=== PATIENT | female | born 1990 ===

== ENCOUNTER 2016-08-15 15:57 | Emergency (ER) | payer SELFPAY ==
[2016-08-15 17:38] VITALS: BMI 32.8
[2016-08-15 18:31] LABS: RBC URINE 7 /hpf (0-3); URINE BACTERIA OCC (<OCC); URINE BILIRUBIN NEGATIVE (NEGATIVE); URINE BLOOD NEGATIVE (NEGATIVE); URINE COLOR YELLOW (YELLOW); URINE GLUCOSE (UA) NEG (Normal); URINE KETONE NEGATIVE (NEGATIVE); URINE LEUKOCYTE ESTERASE LARGE Leu/uL (Negative); URINE PROTEIN NEGATIVE (NEGATIVE); URINE UROBILINOGEN 0.2-1.0 mg/dL (0.2-1.0); WBC URINE 4 /hpf (0-5)
[2016-08-15 18:42] VITALS: TEMP 98.8
--- NOTE | 2016-08-16 08:37 | OBHP ---
Datetime: 08/15/2016 17:30 IP Adm Impression: , intrauterine ; No Active Labor; Intact Membranes IP Chief Complaint Other: lower pelvic pain IP Admit Plan: Observation/Evaluation; Discharge home Admit Comment, IP Provider: 26 yr at 26.5 wks GA presents to [facility] with complaint of lower pe lvic pain and increased vaginal discharge. Denies vaginal bleeding, LOF, ctx's, dysuria or hematuria. + movements. Lower pelvic pain more so in bilateral inguinal fold area, began last night and p ersisted, can't describe it, is 8/10. Also has a mild headache, denies visual changes/RUQ pain/SOB/ex t swelling. Late care at [place] with Dr. Green. Denies any complications with this pr egnancy, UTI s/p Ampicillin tx in Apr 2016. 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 Patient has no other concerns or complaints at this time. Next sched [facility] clinic visit is 08/20/16. care/course: late PNC, UTI tx Ampicillin Apr 2016, Anatomy US 07/18/16 showed laggin g BPD and HC; Rh neg, Rubella Immune, RPR neg, GBS neg, HepBsAg neg, PPD neg, Gc/Ch neg/neg, SRI posi tive titer 1:160 OBHx: 2 FT , primary for failure to progress, 1 miscarriage, 1 SAB PMHx: none SurgHx: x 2 SocHx: denies Etoh/smoking, drugs Meds: PNV Allergies: NKDA, seasonal allergies PE: VSS, patient in no acute distress HEENT: nasal congestion, intermittent non-productive cough Cardiac: S1 S2 normal, no murmurs/rubs/gallops Lungs: CTABL Abd: gravid, non-tender Ext: no edema, DTR's 2+ throughout SSE: copious amount of white vaginal discharge, cervix closed Monitoring: FHR 148 bpm, moderate variability 6-25bpm, accelerations 10x10, no decels Category I A: 26 yr old at 26.5wks GA with vaginal candidiasis and mild headache P: -observe - monitoring -send urinalysis -Tylenol 650mg PO once -Rx for Miconazole 7 -if urinalysis within normal limits, discharge home, follow up with Dr. Green as scheduled fri08/20/16. Shefali Jimenez M.D. PGY1 Pelvic Type - PN: Adequate Extremities - PN: Normal Abdomen - PN: Normal Back - PN: Normal Lungs - PN: Normal Heart - PN: Normal Thyroid - PN: Normal Neurologic - PN: Normal HEENT - PN: Normal General - PN: Normal FHR - Baseline A Provider: 148 Comments, ACOG Physical Exam: SSE: copious amount of white vaginal discharge, cervix closed Gestation - Est Wks by US: 26.5 EGA AdmitDate IP: 26.5 Vital Signs Provider: Reviewed; Within Normal Limits IP Chief Complaint: Maternal discomfort NICHD Variability Prov Fetus A: Moderate 6-25bpm NICHD Accel Fetus A IP Provider: 10X10 FHR Category Provider Fetus A: Category I NICHD Decel Fetus A IP Provider: None Dilatation, Provider: 0 Genitourinary Exam: Abnormal DTRs - PN: Normal
== END 2016-08-15 19:18 | disposition home or self-care (01) ==
LOC: H.EROB2 15:57
DX: O26.92 Pregnancy related conditions, unspecified, second trimester (principal); B37.3 Candidiasis of vulva and vagina; O47.02 False labor before 37 completed weeks of gestation, second trimester; Z3A.26 26 weeks gestation of pregnancy

== ENCOUNTER 2016-10-10 10:48 | Inpatient (IN) | payer SELFPAY ==
[2016-10-10 11:43] VITALS: BMI 41.0
[2016-10-10] MEDS ORDERED: Magnesium Sul 40GM/1L SW 40 GM/1,000 ML ML IV ONE ×2 (11:43→19:16)
[2016-10-10] MEDS: Magnesium Sulfate 4 gm/100 ml 4 GM/100 ML BAG IV ONE ×2 (11:45→12:11)
[2016-10-10] MEDS ORDERED: Lactated Ringer's 1,000 ML IV SCH (11:46)
[2016-10-10] MEDS ORDERED: Betamethasone Soluspan 30 mg/5mL Inj Susp IM ONE (11:50)
[2016-10-10 12:13] LABS: HEMATOCRIT 34.4 % (34.0-47.0); MEAN CELL VOLUME 79.5 fl (81.0-99.0); MEAN CORPUSCULAR HEMOGLOBIN 25.8 pg (27.0-31.0); MEAN CORPUSCULAR HGB CONC 32.4 g/dL (33.0-37.0); RED CELL DISTRIBUTION WIDTH 16.8 % (11.5-14.5)
[2016-10-10 12:33] LABS: ALB/GLOB RATIO 0.9 (1.0-2.1); ALKALINE PHOSPHATASE 122 U/L (38-126); ALT/SGPT 19 U/L (9-52); AST/SGOT 58 U/L (14-36); BILIRUBIN,TOTAL 0.9 mg/dl (0.2-1.3); BLOOD UREA NITROGEN 15 mg/dl (7-17); CALCIUM 8.6 mg/dL (8.4-10.2); CARBON DIOXIDE 20 mmol/L (22-30); CHLORIDE 108 mmol/L (98-107); GFR AFRICAN-AMERICAN > 60; GLUCOSE,RANDOM 65 mg/dL (65-105); SODIUM 134 mmol/l (132-148); TOTAL PROTEIN 6.8 G/DL (6.3-8.2)
[2016-10-10 12:35] LABS: POTASSIUM 5.5 MMOL/L (3.6-5.0)
[2016-10-10] MEDS ORDERED: Labetalol 5 mg/ml Inj 20ML IVP STA (12:47)
[2016-10-10 12:55] LABS: RBC URINE 7 /hpf (0-3); URINE BACTERIA RARE (<OCC); URINE BILIRUBIN NEGATIVE (NEGATIVE); URINE BLOOD NEGATIVE (NEGATIVE); URINE COLOR AMBER (YELLOW); URINE GLUCOSE (UA) NEG (Normal); URINE KETONE NEGATIVE (NEGATIVE); URINE LEUKOCYTE ESTERASE SMALL Leu/uL (Negative); URINE PROTEIN >=500 mg/dL (NEGATIVE); URINE UROBILINOGEN 0.2-1.0 mg/dL (0.2-1.0); WBC URINE 8 /hpf (0-5)
[2016-10-10 13:07] LABS: PARTIAL THROMBOPLASTIN TIME 27.5 Seconds (25.6-37.1)
[2016-10-10] MEDS ORDERED: Oxytocin 30 units/LR 500ML 30 U/500 ML BAG IV ONE (13:18)
[2016-10-10 14:00] VITALS: RESP 18; TEMP 98.5; O2SAT 99
[2016-10-10] MEDS: Lactated Ringer's 2,000 ML IV SCH ×2 (14:00→15:00)
[2016-10-10] MEDS ORDERED: Morphine 1 mg/ml preservative-free Inj(Duramorph) ONE (15:11)
[2016-10-10] MEDS ORDERED: Phenylephrine 10 mg/ml Inj ONE (15:12)
[2016-10-10] MEDS ORDERED: ePHEDrine 50 mg/ml Inj ONE (15:15)
[2016-10-10] MEDS ORDERED: DiphenhydrAMINE 50 mg/ml Inj IVP PRN (16:10)
[2016-10-10] MEDS ORDERED: Naloxone 0.4 mg/ml Inj (Adult) IVP PRN (16:10)
[2016-10-10] MEDS ORDERED: Propofol 10 mg/ml Inj (20 ML) ONE (16:52)
[2016-10-10] MEDS ORDERED: Oxycodone/Acetaminophen 5/325 mg Tab PO PRN ×2 (18:16)
[2016-10-10] MEDS: Lactated Ringer's 1,000 ML IV SCH (18:30)
[2016-10-10] MEDS ORDERED: Magnesium Sulfate 2 GM in Sodium Chloride 0.9% 100 ML IVPB ONE (18:50)
--- NOTE | 2016-10-10 18:54 | OBDS ---
DELIVERY PERSONNEL Nurse Software Support Engineer Certified: na Delivery Doctor: Maia Thomson MD Scrub Nurse: Genet Mendoza OBT Manager Customs: Tereza Oliver RN/Jose E Ramos Anesthesiologist: / Food Tray Assembler: na MATERNAL INFORMATION Delivery Anesthesia: Spinal Maternal Complications: Other Other Maternal Complications: Pre eclamptia--BP-166/100 with cramping on and off Provider Comments: ap dx: 34.5wks; preeclampsia with proteinura; prior cd; desired sterilization pp dx: same procedure: repeat LFTCD; ligation of left fallopian tube surgeon: tam 1st asst: nasrin 2nd asst: lenore pgy2 [id number] findings: adhesions of right fallopian tube to right ovary; subcutaneous adhesions to fascia; adhe sions of muscle to rectus fascia no complications findings: female; 2460g; 9_9 to nbn pt to rr LABOR SUMMARY EDC: 11/16/2016 00:00 No. Babies in Womb: 1 Attempted: No Labor Anesthesia: None LABOR INFORMATION Reason for Induction: Not Applicable Cervical Ripening Agents: Other (Annotations: Labetalol 20 mg IVP) Oxytocin: N/A Group B Beta Strep: Not Done Antibiotics # of Doses: Ancef 3 gms. IVPB at Antibiotics Time of Last Dose: 1510 Steroids Given: Partial Course Other Reason Not Administered: na MEMBRANES Membranes Rupture Method: Artificial STAGES OF LABOR Stage 3 hrs: 1 Stage 3 min: 1 BABY A INFORMATION Infant Delivery Date/Time: 10/10/2016 16:24 Method of Delivery: Born in Route : No : N/A Forceps: N/A Vacuum Extraction: N/A Shoulder Dystocia : No SHOULDER DYSTOCIA BABY A Delivery Date/Time: 10/10/2016 16:24 PRESENTATION/POSITION BABY A Presentation: Cephalic Breech Presentation: N/A PLACENTA INFORMATION BABY A Placenta Delivery Time : 10/10/2016 17:25 Placenta Method of Delivery: Manual Removal Placenta Status: Delivered SCORES BABY A Heart Rate 1 min: >100 bpm Resp Effort 1 min: Good Cry Reflex Irritability 1 min: Cough or Sneeze or Pulls Away Muscle Tone 1 min: Active Motion Color 1 min: Body [place], Extremities Blue Resuscitation Effort 1 min: Tactile Stimulation SCORE 1 MIN: 9 Heart Rate 5 min: >100 bpm Resp Effort 5 min: Good Cry Reflex Irritability 5 min: Cough or Sneeze or Pulls Away Muscle Tone 5 min: Active Motion Color 5 min: Body [place], Extremities Blue Resuscitation Effort 5 min: Tactile Stimulation SCORE 5 MIN: 9 INFORMATION BABY A Gestational Age at Delivery: 34.5 Gestational Status: Outcome : Liveborn Infant Condition : Stable Infant Sex: Female IDENTIFICATION/MEDS BABY A ID Band Number: [id number] ID Band Location: Left Leg; Left Arm Vitamin K Given : Not Given Erythromycin Given: Not Given WEIGHT/LENGTH BABY A Infant Birthweight (gms): 2460 Weight (lb): 5 Weight (oz): 7 CORD INFORMATION BABY A No. Cord Vessels: 3 Nuchal Cord : N/A Nuchal Cord Other: na True Knot: na Cord pH Baby Arterial: na Infant Cord pH Baby Venous: na Cord Blood Taken: Yes Banking/Donate Info: na ASSESSMENT BABY A Infant Complications: None Physical Findings at Delivery: Within Normal Limits Infant Respirations: Appears Normal Rental Management Trainee/ALS Called : Yes Care By: /Jose E Sarkar Transferred To: Nursery
[2016-10-10] MEDS ORDERED: Magnesium Sulfate 4 gm/100 ml 4 GM/100 ML BAG IVPB ONE (18:58)
[2016-10-11 07:16] LABS: HEMATOCRIT 28.9 % (34.0-47.0); MEAN CELL VOLUME 80.9 fl (81.0-99.0); MEAN CORPUSCULAR HEMOGLOBIN 25.4 pg (27.0-31.0); MEAN CORPUSCULAR HGB CONC 31.4 g/dL (33.0-37.0); RED CELL DISTRIBUTION WIDTH 17.3 % (11.5-14.5); WHITE BLOOD COUNT 18.9 K/uL (4.8-10.8)
[2016-10-11] MEDS: Lactated Ringer's 1,000 ML IV SCH (07:30)
[2016-10-11] MEDS ORDERED: Magnesium Sul 40GM/1L SW 40 GM/1,000 ML ML IV ONE (08:27)
[2016-10-11] MEDS: Simethicone 80 mg Chewtab PO SCH ×2 (14:30→19:54)
[2016-10-12] MEDS: Simethicone 80 mg Chewtab PO SCH ×3 (04:10→22:37)
--- NOTE | 2016-10-12 06:25 | OBPPN ---
Datetime: 10/11/2016 07:08 PP Pain Prov: Within normal limits PP Nausea Prov: Denies PP Flatus Prov: Yes PP Breasts Prov: Normal PP Heart Prov: Normal PP Lungs Prov: Normal PP Abdomen/Uterus Prov: Normal PP Lochia Prov: Normal PP Vulva/Perineum Prov: Normal PP CVA Tenderness Prov: Normal PP Extremities Prov: Normal PP Progress Note Prov: 26 y/o now seen and examined at bedside. Patient had uneventful overnig ht. Patient reports mild pelvic pain controlled w/ pain meds. Laying in bed w/o dizziness. Breast/ bottle feeding w/o difficulty. Tolerating PO diet well. Lochia is less than menses in volume. Void ing via bain w/ no blood noted. Reports no bowel movement. Denies fevers, chills, n/v/d, CP/SOB, l ightheadedness and calf pain. Patient continuing to receive MgSO4. PE: GEN: A_O, resting comfortably in bed, NAD Lung: CTA B/L, no wheezing, rhonchi, or rales CVS: S1, S2 wnl, RRR Abd: +BS, firm fundus below umbilicus. Incision dressed, dry, clean, and intact. EXT: no edema, negative Brenda's, calves non-tender Assessment: 26 y/o now s/p on 10/10/2016 @ 16:24 pm tolerating pain w/ medication, tolerating oral intake, adequate urine output via bain, doing well on POD1. Plan: Percocet 5/325 mg 1-2 tabs PO Q6h prn for mod/severe pain. Ibuprofen 600 mg 1 tab Q6h PO pr n for mild pain. Encourage breast feeding and ambulation. Karthik Villanueva M.D. Vice President Education PGY-1 OB Hospitalist note. On rounds at 22:00pm, I saw and examined this pt. Agree with PGY1 note MAHKAYLYN O Also, I had seen pt lele nguyen the day...trasnfered pt form L_D to after MgSO4 disucont inued
--- NOTE | 2016-10-12 13:25 | OBPPN ---
Datetime: 10/12/2016 06:43 PP Pain Prov: Within normal limits PP Nausea Prov: Denies PP Flatus Prov: Yes PP BM Prov: Yes PP Breasts Prov: Normal PP Heart Prov: Normal PP Lungs Prov: Normal PP Abdomen/Uterus Prov: Normal PP Lochia Prov: Normal PP Vulva/Perineum Prov: Normal PP CVA Tenderness Prov: Normal PP Extremities Prov: Normal PP C/S Incision Prov: Normal PP Progress Prov: Normal PP Comments Phys Exam Prov: abd: +BS, soft, NT/ND, no guarding/rigidity. Fundus firm at level of umb ilicus Incision: clean, dry, intact PP Impression Prov: Normal progression PP Plan Prov: Continue present management PP Progress Note Prov: pt seen and examined at bedside. No acute events overnight. Patient reports mild pelvic pain controlled w/ pain meds. OOB/ambulating w/o dizziness. Breast/bottle feeding w/o di fficulty. Tolerating PO diet well. Lochia is less than menses in volume. +flatus/+bm. Denies fevers , chills, headaches, visual disturbances, epigastric pain, n/v/d, CP/SOB, lightheadedness and calf pa in, numbness/tingling. A/P: 26 y/o now s/p on 10/10/2016 @ 16:24 pm tolerating pain w/ medication doing we ll on POD#2. -continue current mangement -monitor BPs -Percocet 5/325 mg 1tab PO Q6h prn for mod/severe pain. -Ibuprofen 600 mg 1 tab Q6h PO prn for mild pain. -Encourage breast feeding and ambulation. -anticipate DC 10/13 Antonio Reese MD PGY1 @ 6:48am OB Hospitalist note. On rounds this morning, I saw and examined this pt. Agree with PGY1 note MARTHA NDO Vital Signs Provider PP: Reviewed Vital Signs Provider Details PP: episodic elevated blood pressure, regular rate, afebrile
--- NOTE | 2016-10-12 17:03 | CP.PCM.CON ---
History of Present Illness - History of Present Illness History of Present Illness: 26 yo female 2 day post referred for management of pre-eclampsia and HTN. Pt presently only complained of soreness on surgical site during BM. Denied dysuria. Denied dizziness, headache or nausea. Review of Systems - Review of Systems All systems: reviewed and no additional remarkable complaints except (aside from those mentioned above, 12 point system review were negative by me) Past Patient History - Past Social History Smoking Status: Never Smoked Alcohol: None - PSYCHIATRIC Hx Substance Use: No - SURGICAL HISTORY Hx Surgeries: Yes Hx Section: Yes (x2) - ANESTHESIA Hx Anesthesia: Yes Hx Anesthesia Reactions: No Meds Allergies/Adverse Reactions: Allergies Allergy/AdvReac Type Severity Reaction Status Date / Time [place] [employer] Allergy RASH Verified 07/04/15 20:50 - Medications Medications: Current Medications Acetaminophen (Tylenol 325mg Tab) 650 mg PO Q4H PRN PRN Reason: Pain, Mild (1-3) Sodium Chloride (Sodium Chloride 0.9%) 1,000 mls @ 100 mls/hr IV .Q10H EDWARD Stop: 10/13/16 16:45 Ibuprofen (Motrin Tab) 600 mg PO Q4H PRN PRN Reason: Pain, Mild (1-3) Last Admin: 10/12/16 11:48 Dose: 600 mg Oxycodone/Acetaminophen (Percocet 5/325 Mg Tab) 1 tab PO Q4 PRN PRN Reason: Pain, moderate (4-7) Stop: 10/13/16 18:17 Oxycodone/Acetaminophen (Percocet 5/325 Mg Tab) 2 tab PO Q4 PRN PRN Reason: Pain, severe (8-10) Stop: 10/13/16 18:17 Sennosides (Senokot Tab) 17.2 mg PO HS [facility] Last Admin: 10/12/16 04:10 Dose: Not Given Simethicone (Mylicon Chew Tab) 80 mg PO Q6 EDWARD Last Admin: 10/12/16 13:41 Dose: Not Given Physical Exam - Constitutional Appears: No Acute Distress - Head Exam Head Exam: ATRAUMATIC - Eye Exam Eye Exam: absent: Scleral icterus - ENT Exam ENT Exam: Mucous Membranes Moist - Neck Exam Neck exam: Negative for: Meningismus - Respiratory Exam Respiratory Exam: Clear to Auscultation Bilateral. absent: Rhonchi, Wheezes, Respiratory Distress - Cardiovascular Exam Cardiovascular Exam: REGULAR RHYTHM, +S1, +S2 - GI/Abdominal Exam GI & Abdominal Exam: Soft, Tenderness (mild tenderness on surgical site) - Rectal Exam Rectal Exam: Deferred - Extremities Exam Extremities exam: Positive for: pedal edema - Back Exam Back exam: absent: tenderness - Neurological Exam Neurological exam: Alert, Oriented x3 - Psychiatric Exam Psychiatric exam: Normal Affect - Skin Skin Exam: Dry, Intact Results - Vital Signs Recent Vital Signs: Last Vital Signs Temp 98.5 F 10/10/16 12:00 Pulse 76 10/10/16 13:07 Resp 18 10/10/16 12:00 BP 166/100 H 10/10/16 13:07 Pulse Ox 99 10/10/16 12:00 - Labs Result Diagrams: 10/11/16 06:59 10/10/16 11:45 Assessment & Plan (1) Pre-eclampsia in period Status: Acute Comment: BP had been relatively stable and controlled without anti- hypertensive. SBP and DBP have been consistently < 150 and < 100 respectively the whole day today. continue to monitor BP. CBC, CMP and Mg level stat and in am. continue IV hydration with NSS until Mg drops to normal level. urine and blood culture
[2016-10-12] MEDS: Sodium Chloride 0.9% 1,000 ML IV SCH (17:33)
[2016-10-12 17:36] LABS: BASO # 0.1 K/uL (0.0-0.2); BASO % 0.5 % (0.0-2.0); EOS # 0.2 K/uL (0.0-0.7); EOS % 1.7 % (0.0-4.0); HEMATOCRIT 24.1 % (34.0-47.0); LYMPH # 2.6 K/uL (1.0-4.3); MEAN CELL VOLUME 80.6 fl (81.0-99.0); MEAN CORPUSCULAR HEMOGLOBIN 25.6 pg (27.0-31.0); MEAN CORPUSCULAR HGB CONC 31.7 g/dL (33.0-37.0); MEAN PLATELET VOLUME 8.7 fl (7.2-11.7); MONO % 8.3 % (0.0-10.0); NEUT # 8.5 K/uL (1.8-7.0); NEUT % 68.5 % (50.0-75.0); RED CELL DISTRIBUTION WIDTH 17.3 % (11.5-14.5); WHITE BLOOD COUNT 12.4 K/uL (4.8-10.8)
[2016-10-12 17:51] LABS: ALB/GLOB RATIO 0.9 (1.0-2.1); ALKALINE PHOSPHATASE 93 U/L (38-126); ALT/SGPT 34 U/L (9-52); AST/SGOT 38 U/L (14-36); BILIRUBIN,TOTAL < 0.1 mg/dl (0.2-1.3); BLOOD UREA NITROGEN 19 mg/dl (7-17); CALCIUM 7.3 mg/dL (8.4-10.2); CARBON DIOXIDE 27 mmol/L (22-30); CHLORIDE 105 mmol/L (98-107); GFR AFRICAN-AMERICAN > 60; GLUCOSE,RANDOM 79 mg/dL (65-105); MAGNESIUM 2.4 MG/DL (1.6-2.3); POTASSIUM 4.4 MMOL/L (3.6-5.0); SODIUM 137 mmol/l (132-148); TOTAL PROTEIN 5.2 G/DL (6.3-8.2)
--- NOTE | 2016-10-12 18:32 | RAD ---
PROCEDURE: CHEST RADIOGRAPH, 1 VIEW HISTORY: leukocytosis COMPARISON: None available. FINDINGS: LUNGS: Poor inspiration with low lung volumes, crowded bronchovascular markings and mild bibasilar atelectasis. PLEURA: No pneumothorax or pleural fluid seen. CARDIOVASCULAR: Heart appears mildly enlarged. OSSEOUS STRUCTURES: No significant abnormalities. VISUALIZED UPPER ABDOMEN: Normal. OTHER FINDINGS: None. IMPRESSION: Poor inspiration with low lung volumes, crowded bronchovascular markings and suspected mild bibasilar atelectasis. Mild cardiomegaly.
[2016-10-13] MEDS: Simethicone 80 mg Chewtab PO SCH ×4 (04:13→09:39)
[2016-10-13] MEDS: Sodium Chloride 0.9% 1,000 ML IV SCH (05:06)
[2016-10-13 06:11] LABS: BASO # 0.1 K/uL (0.0-0.2); EOS # 0.3 K/uL (0.0-0.7); EOS % 2.4 % (0.0-4.0); HEMATOCRIT 25.6 % (34.0-47.0); LYMPH # 2.8 K/uL (1.0-4.3); LYMPH % 22.8 % (20.0-40.0); MEAN CELL VOLUME 80.8 fl (81.0-99.0); MEAN CORPUSCULAR HEMOGLOBIN 25.8 pg (27.0-31.0); MEAN CORPUSCULAR HGB CONC 31.9 g/dL (33.0-37.0); MONO % 7.9 % (0.0-10.0); NEUT % 65.9 % (50.0-75.0); NRBC % 0.1 % (0.0-0.0); RED CELL DISTRIBUTION WIDTH 17.3 % (11.5-14.5); WHITE BLOOD COUNT 12.1 K/uL (4.8-10.8)
[2016-10-13 06:22] LABS: BLOOD UREA NITROGEN 12 mg/dl (7-17); CALCIUM 7.7 mg/dL (8.4-10.2); CARBON DIOXIDE 26 mmol/L (22-30); CHLORIDE 108 mmol/L (98-107); GFR AFRICAN-AMERICAN > 60; GLUCOSE,RANDOM 68 mg/dL (65-105); MAGNESIUM 2.1 MG/DL (1.6-2.3); POTASSIUM 4.1 MMOL/L (3.6-5.0); SODIUM 138 mmol/l (132-148)
[2016-10-13 08:21] VITALS: PULSE 77
--- NOTE | 2016-10-13 09:18 | CP.PCM.PN ---
Subjective - Date & Time of Evaluation Date of Evaluation: 10/13/16 Time of Evaluation: 09:16 - Subjective Subjective: Pt seen examined bedside. Patient feeling well, no chest pain or dyspnea, no palpitations. Has been receiving fluids until this morning. Will diurese patient, complains of edema. Mildly hypertensive, start labetalol 100 mg Q12 otherwise stable no acute distress. Objective - Vital Signs/Intake and Output Vital Signs (last 24 hours): Temp Pulse Resp BP Pulse Ox 98.5 F 77 18 158/96 H 99 10/10/16 12:00 10/13/16 08:19 10/10/16 12:00 10/13/16 08:19 10/10/16 12:00 - Medications Medications: Current Medications Acetaminophen (Tylenol 325mg Tab) 650 mg PO Q4H PRN PRN Reason: Pain, Mild (1-3) Furosemide (Lasix) 20 mg IVP STAT STA Stop: 10/13/16 09:16 Ibuprofen (Motrin Tab) 600 mg PO Q4H PRN PRN Reason: Pain, Mild (1-3) Last Admin: 10/12/16 11:48 Dose: 600 mg Labetalol HCl (Trandate) 100 mg PO BID EDWARD Last Admin: 10/13/16 08:19 Dose: 100 mg Oxycodone/Acetaminophen (Percocet 5/325 Mg Tab) 1 tab PO Q4 PRN PRN Reason: Pain, moderate (4-7) Stop: 10/13/16 18:17 Oxycodone/Acetaminophen (Percocet 5/325 Mg Tab) 2 tab PO Q4 PRN PRN Reason: Pain, severe (8-10) Stop: 10/13/16 18:17 Sennosides (Senokot Tab) 17.2 mg PO HS EDWARD Last Admin: 10/12/16 22:37 Dose: Not Given Simethicone (Mylicon Chew Tab) 80 mg PO Q6 EDWARD Last Admin: 10/13/16 08:21 Dose: 80 mg - Labs Labs: 10/13/16 05:50 10/13/16 05:50 PT 9.7 Seconds (9.8-13.1) L 10/10/16 12:33 INR 0.9 (0.9-1.2) 10/10/16 12:33 APTT 27.5 Seconds (25.6-37.1) 10/10/16 12:33 - Constitutional Appears: Non-toxic, No Acute Distress - Head Exam Head Exam: ATRAUMATIC, NORMOCEPHALIC - Eye Exam Eye Exam: EOMI, Normal appearance, PERRL - ENT Exam ENT Exam: Mucous Membranes Moist, Normal Oropharynx - Neck Exam Neck Exam: Full ROM, Normal Inspection - Respiratory Exam Respiratory Exam: Clear to Ausculation Bilateral, NORMAL BREATHING PATTERN - Cardiovascular Exam Cardiovascular Exam: RRR, +S1, +S2 - GI/Abdominal Exam GI & Abdominal Exam: Soft, Normal Bowel Sounds. absent: Tenderness, Mass, Organomegaly - Extremities Exam Extremities Exam: Normal Capillary Refill, Pedal Edema - Back Exam Back Exam: absent: CVA tenderness (L), CVA tenderness (R) - Neurological Exam Neurological Exam: Alert, Awake, Oriented x3 - Psychiatric Exam Psychiatric exam: Normal Affect, Normal Mood - Skin Skin Exam: Dry, Normal Color, Warm Assessment and Plan - Assessment and Plan (Free Text) Plan: Preeclampsia in patient +Proteinuria, hypertension - started Labetalol 100 mg Q12 today for BP 171/97, 153/102, 166/100, 158/96 since yesterday - fluids were d/c this AM for hypermagnesemia - lasix 20mg IV once - recommend to pump and dump breastmilk - monitor BP today - consider DC today once BP under control per OBGYN
[2016-10-13 10:28] VITALS: BP 161/92
--- NOTE | 2016-10-13 19:01 | OBPPN ---
Datetime: 10/13/2016 12:01 PP Pain Prov: Within normal limits PP Nausea Prov: Denies PP Flatus Prov: Yes PP BM Prov: Yes PP Breasts Prov: Normal PP Heart Prov: Normal PP Lungs Prov: Normal PP Abdomen/Uterus Prov: Normal PP Lochia Prov: Normal PP Extremities Prov: Normal PP C/S Incision Prov: Normal PP Progress Prov: Normal PP Comments Phys Exam Prov: Abd: Fundus Firm and below umbilicus. No right upper quadrant tenderenes s Incision site: Appears C/D/I Ext: Non pitting edema of the lower extremities. No calf tendereness b/l PP Impression Prov: Normal progression; Induced Hypertension PP Plan Prov: Continue present management; Discharge PP Progress Note Prov: Patient is seen and examined at bedside. No acute events overnight. Patient reports mild pelvic pain controlled w/ pain meds. OOB/ambulating w/o dizziness. Breast/bottle feedin g w/o difficulty. Tolerating PO diet well. Lochia is less than menses in volume. +flatus/+bm. Denie s fevers, chills, headaches, visual disturbances, epigastric pain, chest pain n/v/d, CP/SOB, lighthea dedness and calf pain, numbness/tingling. A/P: 26 y/o now s/p on 10/10/2016 @ 16:24 pm tolerating pain w/ medication doing we ll on POD#3. -continue current mangement -monitor BPs -Percocet 5/325 mg 1tab PO Q6h prn for mod/severe pain. -Ibuprofen 600 mg 1 tab Q6h PO prn for mild pain. -Encourage breast feeding and ambulation. - Lasix 20 mg IV once, Labetalol 100 mg BID -anticipate DC is today if cleared by hospitalist and BP is stable Jes Field M.D. IP PP Procedures: None Vital Signs Provider PP: Reviewed Vital Signs Provider Details PP: Hypertensive: BP: 161/92 HR: WNL
--- NOTE | 2016-10-13 19:01 | OBDCSUM ---
Datetime: 10/13/2016 12:10 Discharged to, Provider: Home Follow up at, Provider: OBGYN Disch Instr Activity: Normal activity Disch Instr Diet: Regular Discharge Instructions, Provider: Routine instructions given Discharge Diagnosis, Provider: Term Delivered Discharge Time: 10/13/2016 15:00 Follow up in weeks, Provider: 2-3 days BP check Disch Referrals: None Disch Activity Restrictions: No sexual activity; Nothing in vagina - [place], tampons, douche Discharge Comment, Provider: 26 YO had a C Section Delivered baby boy on 10/10/16 @ 16:24 2460gm , : 9,9, Patient doing well, stable for discharge. Prescription given for pain. Encourage - PNV 1 tab PO once daily - Ibuprofen 600 mg 1 tab PO Q6 PRN pain - Percocet 5/325 mg PO Q 6 1 tab for moderate to severe pain - Labetolol 100 mg BID - Ferrous Sulfate 325 mg BID - Monitor BP: Script given to patient Ambulate w/ caution, nothing in vagina, no heavy lifting, if excessive bleeding or fever without relief from Tylenol go to ED - Advised to F/U with PMD in 2-3 days for blood pressure check and 1 week for wound check. Take b iliana to peds in 2-3 days Jes Field M.D. [employer] Pre Cooker PGY1 Discharge Diagnosis Prov Other: HTN Contraception after Delivery: Undecided
== END 2016-10-13 15:00 | disposition home or self-care (01) | DRG 651 ==
LOC: H.EROB2 10:48 → H.L&D 11:52 → H.OB/GYN 10-11 15:14
PROVIDERS: ADMIT Obstetrics & Gynecology; ATTEND Obstetrics & Gynecology
PROC: 10D00Z1 Extraction of Products of Conception, Low, Open Approach (ICD-10-PCS; principal; 2016-10-10)
PROC: 0UT70ZZ Resection of Bilateral Fallopian Tubes, Open Approach (ICD-10-PCS; 2016-10-10)
PROC: 4A1HXCZ Monitoring of Products of Conception, Cardiac Rate, External Approach (ICD-10-PCS; 2016-10-10)
DX: O60.14X0 Preterm labor third trimester with preterm delivery third trimester, not applicable or unspecified (principal); O16.4 Unspecified maternal hypertension, complicating childbirth; N73.6 Female pelvic peritoneal adhesions (postinfective); Z37.0 Single live birth; Z3A.34 34 weeks gestation of pregnancy; O34.211 Maternal care for low transverse scar from previous cesarean delivery; N85.8 Other specified noninflammatory disorders of uterus; Z30.2 Encounter for sterilization

== ENCOUNTER 2016-11-28 06:31 | Emergency (ER) | payer MEDICAID, SELFPAY ==
[2016-11-28 06:31] VITALS: BMI 41.0
--- NOTE | 2016-11-28 07:13 | ED PDOC ---
HPI: General Adult Time Seen by Provider: 11/28/16 06:57 Chief Complaint (Nursing): Breast Problem Chief Complaint (Provider): left breast pain History Per: Patient History/Exam Limitations: no limitations Onset/Duration Of Symptoms: Days (x 18) Current Symptoms Are (Timing): Still Present Pain Scale Rating Of: 10 Additional Complaint(s): Pt is a 26 year old female, with no previous medical history, who presents to the ED with complaints of left breast pain rated 10/10 ongoing for the past 18 days (October) which started a month after giving on October 10, 2016. She denies any fever or chills. Patient went to her crate tier (Dr. Villasenor-- [facility]) on 11/12/2016 who informed her she had mastitis and prescribed dicloxacillin which she is still on and compliant with. She also reports taking ibuprofen and using hot compresses with no relief stating it is starting to "act up again". She stopped breast feeding yesterday (and previous to this she was favoring the right--asymptomatic--breast). Also c/o having some nausea. Patient had a temperature (fever) of 103.1 at 3:00 AM today and took both ibuprofen and dicloxacillin. PMD: [facility] Assembly Line Supervisor: Dr. Villasenor Past Medical History Reviewed: Historical Data, Nursing Documentation, Vital Signs Vital Signs: Last Vital Signs Temp 99.8 F H 11/28/16 06:37 Pulse 103 H 11/28/16 06:37 Resp 20 11/28/16 06:37 BP 150/81 11/28/16 06:37 Pulse Ox 99 11/28/16 09:24 - Medical History PMH: No Chronic Diseases - Family History Family History: States: Other Other Family History: cancer - Social History Current smoker - smoking cessation education provided: No Ex-Smoker (has not smoked in the last 12 months): No Alcohol: None Drugs: Denies - Home Medications Home Medications: Ambulatory Orders Medication Instructions Recorded Pnv with Ca,No.72/Iron/FA [Pnv 1 tab PO DAILY 10/10/16 Plus Multivit Tab] Ferrous Sulfate 325 mg PO BID #60 tablet 10/13/16 Ibuprofen [Motrin] 600 mg PO Q6 PRN #30 tab 10/13/16 Labetalol [Trandate] 100 mg PO BID #60 tab 10/13/16 Sennosides A and B [Senokot Tab] 17.2 mg PO HS #20 tab 10/13/16 oxyCODONE/Acetaminophen [Percocet 1 ea PO Q6 PRN #20 tab 10/13/16 5/325 mg Tab] Clindamycin [Cleocin] 1 tab PO TID #30 cap 11/28/16 Dicloxacillin [Dynapen] 1 tab PO QID #28 cap 11/28/16 - Allergies Allergies/Adverse Reactions: Allergies Allergy/AdvReac Type Severity Reaction Status Date / Time Boyd And Derivatives Allergy RASH Verified 07/04/15 20:50 Review of Systems ROS Statement: Except As Marked, All Systems Reviewed And Found Negative Constitutional: Positive for: Fever. Negative for: Chills Respiratory: Negative for: Shortness of Breath Gastrointestinal: Positive for: Nausea. Negative for: Abdominal Pain Musculoskeletal: Positive for: Other (left breast pain) Physical Exam - Reviewed Nursing Documentation Reviewed: Yes Vital Signs Reviewed: Yes - Physical Exam Appears: Positive for: Well, Non-toxic, No Acute Distress Head Exam: Positive for: ATRAUMATIC, NORMAL INSPECTION, NORMOCEPHALIC Skin: Positive for: Normal Color, Warm, Dry Eye Exam: Positive for: Normal appearance ENT: Positive for: Normal ENT Inspection Neck: Positive for: Normal, Painless ROM, Supple Cardiovascular/Chest: Positive for: Regular Rate, Rhythm, Other (left breast tender at the 10 and 11 o'clock position with slight warmth noted. No erythema, masses, erythema or discharge from the nipple noted. ) Respiratory: Positive for: CNT, Normal Breath Sounds Gastrointestinal/Abdominal: Positive for: Normal Exam, Bowel Sounds, Soft. Negative for: Tenderness Back: Positive for: Normal Inspection Rectal: Positive for: Deferred Extremity: Positive for: Normal ROM Neurologic/Psych: Positive for: Alert, Oriented - Laboratory Results Result Diagrams: 11/28/16 07:30 11/28/16 07:30 - ECG O2 Sat by Pulse Oximetry: 99 (RA) Pulse Ox Interpretation: Normal Medical Decision Making Medical Decision Making: Initial Impression: Mastitis vs Abscess vs plugged duct vs galactocele (milk retention cyst) Initial Plan: * VBG * labs * IV NS 1,000 ml at 500 ml/hr * blood culture * breast milk culture * urine * urinalysis * US breast unilateral * reevaluation 08:43 US breast FINDINGS: LEFT BREAST: No solid or cystic masses identified. Color Doppler imaging demonstrates mild hyperemia. There is mild prominence of the ducts in the retroareolar space in this lactating patient. There is no axillary lymphadenopathy. IMPRESSION: Mild hyperemic changes are appreciated relatively diffusely but without focal cyst or solid mass appreciated. Further clinical correlation is advised. BIRAD: BI-RADS 2 - benign findings. 9:23 AM Progress note: I spoke to PICKER OPERATOR on-call (Dr. White) and reviewed the details of this case. He recommends that the pt continue to take dicloxacillin but to also add clindamycin and to f/u with PICKER OPERATOR in 2-3 days. Pt states that she feels better after the Tylenol and IV Clindamycin. Will d/c home. Scribe Attestation: Documented by Lizy Avila, acting as a scribe for Shyam Nance DO. Provider Scribe Attestation: All medical record entries made by the Scribe were at my direction and personally dictated by me. I have reviewed the chart and agree that the record accurately reflects my personal performance of the history, physical exam, medical decision making, and the department course for this patient. I have also personally directed, reviewed, and agree with the discharge instructions and disposition. Disposition - Clinical Impression Clinical Impression: Chronic mastitis of left breast - Patient ED Disposition Is Patient to be Admitted: No - Disposition Referrals: [facility] [Outside] Disposition: Routine/Home Disposition Time: 09:27 Condition: FAIR Additional Instructions: Veronica, thank you for letting us take care of you today. Return to the ER if your symptoms worsen, if your fever does not respond to Tylenol or ibuprofen, or if any problems. Take Tylenol (acetaminophen) or Ibuprofen for the fever. You should continue taking dicloxacillin (new prescription being given) but you should also take an additional antibiotic called Clindamycin (new prescription given today). Cold compresses to the breast can help. Ibuprofen can also help for pain. Follow up with your crate tier (Dr. Villasenor) at [place] in 2-3 days for a re-evaluation. Prescriptions: Clindamycin [Cleocin] 1 tab PO TID #30 cap Dicloxacillin [Dynapen] 1 tab PO QID #28 cap Instructions: Mastitis (ED) Print Language: LAO
[2016-11-28] MEDS ORDERED: Sodium Chloride 0.9% 1,000 ML IV SCH (07:15)
[2016-11-28 08:02] LABS: VENOUS BLOOD GAS BASE EXCESS 3.7 mmol/L (0.0-2.0); VENOUS BLOOD GAS PCO2 39 mmHg (40-60); VENOUS BLOOD GAS PO2 22 mm/Hg (30-55); VENOUS BLOOD PH 7.46 (7.32-7.43)
[2016-11-28 08:19] LABS: BASO % 0.2 % (0.0-2.0); EOS # 0.1 K/uL (0.0-0.7); EOS % 0.9 % (0.0-4.0); HEMOGLOBIN 11.4 g/dL (12.0-16.0); LYMPH # 0.8 K/uL (1.0-4.3); LYMPH % 9.5 % (20.0-40.0); MEAN CELL VOLUME 76.8 fl (81.0-99.0); MEAN CORPUSCULAR HEMOGLOBIN 25.1 pg (27.0-31.0); MEAN CORPUSCULAR HGB CONC 32.7 g/dL (33.0-37.0); MEAN PLATELET VOLUME 7.9 fl (7.2-11.7); MONO # 0.4 K/uL (0.0-0.8); MONO % 4.3 % (0.0-10.0); NEUT # 7.5 K/uL (1.8-7.0); NEUT % 85.1 % (50.0-75.0); RBC 4.55 Mil/uL (3.80-5.20); RED CELL DISTRIBUTION WIDTH 18.9 % (11.5-14.5); WHITE BLOOD COUNT 8.8 K/uL (4.8-10.8)
[2016-11-28 08:26] LABS: ALB/GLOB RATIO 1.1 (1.0-2.1); ALBUMIN 4.2 g/dL (3.5-5.0); ALT/SGPT 42 U/L (9-52); AST/SGOT 31 U/L (14-36); BLOOD UREA NITROGEN 11 mg/dl (7-17); CALCIUM 9.6 mg/dL (8.4-10.2); GFR AFRICAN-AMERICAN > 60; GFR NON-AFRICAN AMERICAN > 60; PLATELET COUNT 353 K/uL (130-400); SQUAMOUS EPITHIAL 1 /hpf (0-5); URINE BACTERIA RARE (<OCC); URINE BILIRUBIN NEGATIVE (NEGATIVE); URINE BLOOD NEGATIVE (NEGATIVE); URINE CLARITY SLIGHTY-CLOUDY (Clear); URINE COLOR YELLOW (YELLOW); URINE GLUCOSE (UA) NEG (Normal); URINE LEUKOCYTE ESTERASE MOD Leu/uL (Negative); URINE NITRATE NEGATIVE (NEGATIVE); URINE PROTEIN 30 mg/dL (NEGATIVE); URINE UROBILINOGEN 0.2-1.0 mg/dL (0.2-1.0)
[2016-11-28] MEDS ORDERED: Clindamycin 600 MG in Sodium Chloride 0.9% 100 ML IVPB STA (08:41)
--- NOTE | 2016-11-28 08:44 | US ---
HISTORY: COMPARISON: No prior comparison available. TECHNIQUE: BREAST UNILATERAL LEFT Ultrasonography of the left breast was performed throughout all radius is including retroareolar and axillary tail components. FINDINGS: LEFT BREAST: No solid or cystic masses identified. Color Doppler imaging demonstrates mild hyperemia. There is mild prominence of the ducts in the retroareolar space in this lactating patient. There is no axillary lymphadenopathy. IMPRESSION: Mild hyperemic changes are appreciated relatively diffusely but without focal cyst or solid mass appreciated. Further clinical correlation is advised. BIRAD: BI-RADS 2 - benign findings.
[2016-11-28 09:06] LABS: BANDS 2 % (0-2); LYMPHOCYTE 9 % (20-50); MONOCYTE 2 % (0-10); NEUTROPHIL 87 % (42-75); PLATELET ESTIMATE NORMAL (NORMAL); TOTAL CELLS COUNTED 100
[2016-11-28 09:07] LABS: ANISOCYTOSIS SLIGHT; HYPOCHROMIC SLIGHT; MICROCYTOSIS SLIGHT
[2016-11-28 09:56] VITALS: RESP 18; O2SAT 98
[2016-11-28 10:31] VITALS: BP 119/76; PULSE 89; TEMP 99.8
== END 2016-11-28 10:36 | disposition home or self-care (01) ==
LOC: H.ER 06:31
DX: N64.4 Mastodynia (principal)